=== PATIENT | female | born 1975 | race Caucasian/White ===

== ENCOUNTER 2022-09-17 08:19 | Emergency (ER) | payer BC, SELFPAY ==
[2022-09-17 08:25] VITALS: BP 138/91; PULSE 115; RESP 24; TEMP 37.2; O2SAT 99; BMI 81.6
--- NOTE | 2022-09-17 08:52 | ED.NAVMDI ---
HPI - Nausea/Vomiting/Diarrhea General Chief complaint: Nausea/Vomiting Stated complaint: can't keep any water down Time Seen by Provider: 09/17/22 08:43 History of Present Illness HPI Narrative: This 47-year-old female comes in reporting nausea, vomiting, and diarrhea over the past 3 days. She has had chills and sweats alternating during this time. She does not report any fevers. She has not had any blood in the toilet. She denies having any shortness of breath or cough symptoms. Related Data Home Medications Medication Instructions Recorded Confirmed amlodipine 5 mg tablet mg 09/17/22 bupropion HCl 100 mg tablet,12 hr mg PO 09/17/22 sustained-release hydrochlorothiazide 25 mg tablet mg 09/17/22 levonorgestrel-ethinyl estradiol tab 09/17/22 0.1 mg-20 mcg tablet (Vienva) losartan 100 mg tablet 100 mg PO DAILY 09/17/22 09/17/22 omeprazole .ROUTE 09/17/22 paroxetine HCl 30 mg tablet mg PO 09/17/22 trazodone 50 mg tablet mg 09/17/22 Previous Rx's Medication Instructions Recorded ondansetron HCl 4 mg tablet 4 mg PO Q6H #20 tabs 09/17/22 Allergies Allergy/AdvReac Type Severity Reaction Status Date / Time codeine Allergy Intermediate Verified 09/17/22 08:32 erythromycin base Allergy Intermediate Verified 09/17/22 08:32 Penicillins Allergy Intermediate Verified 09/17/22 08:32 Sulfa (Sulfonamide Allergy Intermediate Verified 09/17/22 08:32 Antibiotics) Review of Systems Status of ROS: Reports: 10 or more systems reviewed and unremarkable except as noted in History and below Narrative: Constitutional: No fevers, no weight gain or loss. Eyes: No discharge. No vision changes. HENT: No congestion, no sore throat, no ear pain. Cardiovascular: No chest pain, no palpitations. Respiratory: No shortness of breath, no wheezes, no cough. Gastrointestinal: No abdominal pain. Nausea, vomiting, and diarrhea. Genitourinary: No dysuria, no hematuria. Musculoskeletal: Normal range of motion. Skin: No rashes, no pruritis. Neurological: No dizziness, weakness, sensory change, speech change. Endo/Heme/Allergies: No bruising or bleeding. No polydipsia. Pysch: no suicidality, no anxiety, no insomnia. All other systems reviewed and are negative. PFSH PFSH Social History Smoking Status: Never smoker How often do you have a drink containing alcohol: never AUDIT-C Alcohol total score: 0 Non-prescribed substance use: marijuana (any form) Non-prescribed substance use details: last time sunday Exam Narrative: Exam Narrative: Constitutional: Well-developed, well-nourished, no acute distress. HEENT: Normocephalic, atraumatic. Neck: Normal range of motion. Nontender. Supple. Heart: Regular. No murmurs. Tachycardia, rate 115 beats per minute. Intact distal pulses. Lungs: Clear to auscultation. No chest discomfort. No wheezes, rhonchi, or rales. Abdomen: Normal bowel sounds. Nontender. No rebound tenderness. Genitalia: Deferred. Back: No midline tenderness. Normal range of motion. Extremities: Normal range of motion. No injury. Skin: Intact. No rash. Warm. No erythema or pallor. Neurologic: No altered sensation. No weakness. Alert and oriented. Psychiatric: No suicidality. No anxiety or depression. No insomnia. Nursing notes and vitals signs are reviewed. Const: Vital Signs, click to edit/add: Vital Signs - 24 hr 09/17/22 08:25 Temperature 98.9 F Pulse Rate [Pulse Oximeter] 115 H Respiratory Rate 24 Blood Pressure [Le ft Upper Arm] 138/91 H Pulse Oximetry 99 Oxygen Delivery Me thod Room Air Course Vital Signs Vital signs: Initial Vital Signs Temperature 98.9 F 09/17/22 08:25 Temperature Source Temporal Artery Scan 09/17/22 08:25 Pulse Rate 115 H 09/17/22 08:25 Respiratory Rate 24 09/17/22 08:25 Blood Pressure 138/91 H 09/17/22 08:25 Blood Pressure Mean 106 09/17/22 08:25 Blood Pressure Position Supine 09/17/22 08:25 Pulse Oximetry 99 09/17/22 08:25 Oxygen Delivery Method 09/17/22 08:25 Vital Signs Temperature 98.9 F 09/17/22 08:25 Pulse Rate 115 H 09/17/22 08:25 Respiratory Rate 24 09/17/22 08:25 Blood Pressure 138/91 H 09/17/22 08:25 Pulse Oximetry 99 09/17/22 08:25 Oxygen Delivery Method 09/17/22 08:25 Temperature 98.9 F 09/17/22 08:25 Pulse Rate 115 H 09/17/22 08:25 Respiratory Rate 24 09/17/22 08:25 Blood Pressure 138/91 H 09/17/22 08:25 Pulse Oximetry 99 09/17/22 08:25 Oxygen Delivery Method 09/17/22 08:25 MDM - Nausea/Vomiting/Diarrhea MDM Narrative Medical decision making narrative: This patient comes in with persistent vomiting and diarrhea over the past 2 or 3 days. She does have tachycardia but is maintaining sufficient blood pressure. She is very fearful that she might have COVID. Her COVID test is negative today along with negative for influenza and RSV. An IV was established where she received a L of normal saline and 4 mg of Zofran. This brought great relief of her nausea and vomiting symptoms. Lab results returned reassuring with just slight decrease in both sodium and potassium. She is okay to be discharged home to increased diet as tolerated. She did receive a prescription for Zofran. Lab Data Labs: Lab Results 09/17/22 09/17/22 09/17/22 Range/Units 08:39 09:02 09:02 WBC 10.74 (4.50-11.00) K/uL RBC 4.87 (4.00-5.20) m/uL Hgb 13.6 (12.0-16.0) gm/dL Hct 40.5 (33.0-51.0) % MCV 83 (80-100) fL MCH 28 (26-34) pg MCHC 34 (32-36) gm/dL RDW Coeff of Stew 14.2 (11.5-15.5) % Plt Count 175 (140-440) K/uL Neut % (Auto) 84.3 H (42.0-72.0) % Lymph % (Auto) 6.5 L (20-44) % [place] % (Auto) 8.6 (0.0-11.0) % Eos % (Auto) 0.0 (0.0-7.0) % Baso % (Auto) 0.3 (0.0-3.0) % Neut # (Auto) 9.10 H (1.7-7.0) K/uL Lymph # (Auto) 0.70 L (0.90-2.90) K/uL [place] # (Auto) 0.90 (0.00-0.90) K/UL Eos # (Auto) 0.00 (0.00-0.50) K/uL Baso # (Auto) 0.03 (0.00-0.30) K/uL Sodium 132 L (135-149) mmol/L Potassium 3.3 L (3.6-5.1) mmol/L Chloride 102 (96-114) mmol/L Carbon Dioxide 20 (20-32) mmol/L BUN 11 (5-24) mg/dL Creatinine 0.7 (0.5-1.5) mg/dL Estimated Creat Clear 74.97 Estimated GFR 107 ml/min Glucose 132 H (60-115) mg/dL Calcium 9.1 (8.4-10.6) mg/dL SARS-CoV-2 (PCR) Negative SARS-CoV-2 (Negative) Influenza Type A (PCR) Negative PCR FLU A (Negative) Influenza Type B (PCR) Negative PCR FLU B (Negative) RSV (PCR) Negative PCR RSV (Negative) Discharge Plan Discharge Clinical Impression: Gastroenteritis Patient Disposition: Home, Self-Care Condition: Improved Additional Instructions: Take fluids and increase diet as tolerated. Take medication for nausea as needed and directed. Follow up with MD or return if worsening. Prescriptions: New ondansetron HCl 4 mg tablet 4 mg PO Q6H Qty: 20 0RF No Action trazodone 50 mg tablet levonorgestrel-ethinyl estrad [Vienva] 0.1-20 mg-mcg tablet Label Comments: TAKE 1 TABLET BY MOUTH EVERY DAY amlodipine 5 mg tablet bupropion HCl 100 mg tablet sustained-release 12 hr PO paroxetine HCl 30 mg tablet PO hydrochlorothiazide 25 mg tablet omeprazole [Prilosec] .ROUTE losartan 100 mg tablet 100 mg PO DAILY Follow Up/Referrals: Kamla Vazquez PA-C [Referring] - Stand Alone Forms: [facility] Info Instructions
[2022-09-17] MEDS: ONDANSETRON 2 MG/ML inj 4 MG IVP (09:06)
[2022-09-17] MEDS: 0.9 % SODIUM CHLORIDE 1000 ml 1,000 ML IV (09:06)
[2022-09-17 09:16] LABS: Basophils Absolute Auto 0.03 K/uL (0.00-0.30); Basophils Percent Auto 0.3 % (0.0-3.0); Hematocrit 40.5 % (33.0-51.0); Hemoglobin* 13.6 gm/dL (12.0-16.0); Immature Granulocytes Abs Auto 0.03 K/uL (0.00-0.30); Immature Granulocytes Pct Auto 0.3 %; Lymphocytes Percent Auto 6.5 % (20-44); Mean Corpuscular HGB Conc 34 gm/dL (32-36); Mean Corpuscular Hemoglobin 28 pg (26-34); Mean Corpuscular Volume 83 fL (80-100); Monocytes Percent Auto 8.6 % (0.0-11.0); Neutrophils Percent Auto 84.3 % (42.0-72.0); Platelet Count* 175 K/uL (140-440); RDW Coefficient of Variation % 14.2 % (11.5-15.5); Red Blood Count 4.87 m/uL (4.00-5.20); White Blood Count* 10.74 K/uL (4.50-11.00)
[2022-09-17 09:21] LABS: Slide Review Reflex No
[2022-09-17 09:29] LABS: PCR FLU A Negative PCR FLU A (Negative); PCR FLU B Negative PCR FLU B (Negative); PCR RSV Negative PCR RSV (Negative)
[2022-09-17 09:30] LABS: SARS PCR* Negative SARS-CoV-2 (Negative)
[2022-09-17 09:32] LABS: Chloride* 102 mmol/L (96-114); Sodium* 132 mmol/L (135-149)
[2022-09-17 09:33] LABS: Potassium* 3.3 mmol/L (3.6-5.1)
[2022-09-17 09:35] LABS: Carbon Dioxide* 20 mmol/L (20-32); Creatinine* 0.7 mg/dL (0.5-1.5); Est. Creatinine Clearance* 74.97; Estimated Glomerular Filt Rate 107 ml/min
[2022-09-17 09:36] LABS: Blood Urea Nitrogen* 11 mg/dL (5-24); Calcium* 9.1 mg/dL (8.4-10.6); Glucose* 132 mg/dL (60-115)
== END 2022-09-17 10:08 | disposition home or self-care (01) ==
PROVIDERS: Emergency Provider Emergency Medicine Emergency Medical Services; PCP Student in an Organized Health Care Education/Training Program
DX: J18.1 Lobar pneumonia, unspecified organism (principal); K52.9 Noninfective gastroenteritis and colitis, unspecified
CPT/HCPCS: 36415; 80048; 85025; 87502; 87634; 87635; 96361; 96374; 99284; J2405; J7030

== ENCOUNTER 2022-09-21 08:24 | Emergency (ER) | payer BC, SELFPAY ==
[2022-09-21 08:37] VITALS: BP 103/76; PULSE 83; RESP 18; TEMP 35.8; O2SAT 98; BMI 34.8
[2022-09-21] MEDS: 0.9 % SODIUM CHLORIDE 1000 ml 1,000 ML IV (09:00)
[2022-09-21 09:06] VITALS: O2SAT 98
[2022-09-21 09:11] LABS: Lactate* 1.3 mmol/L (0.5-1.9)
[2022-09-21 09:14] LABS: Basophils Absolute Auto 0.02 K/uL (0.00-0.30); Basophils Percent Auto 0.3 % (0.0-3.0); Eosinophils Absolute Auto 0.03 K/uL (0.00-0.50); Eosinophils Percent Auto 0.4 % (0.0-7.0); Hematocrit 38.9 % (33.0-51.0); Hemoglobin* 13.3 gm/dL (12.0-16.0); Immature Granulocytes Abs Auto 0.08 K/uL (0.00-0.30); Mean Corpuscular HGB Conc 34 gm/dL (32-36); Mean Corpuscular Hemoglobin 28 pg (26-34); Mean Corpuscular Volume 81 fL (80-100); Monocytes Percent Auto 11.7 % (0.0-11.0); Neutrophils Percent Auto 77.6 % (42.0-72.0); RDW Coefficient of Variation % 13.9 % (11.5-15.5); Red Blood Count 4.78 m/uL (4.00-5.20); White Blood Count* 7.76 K/uL (4.50-11.00)
[2022-09-21 09:29] LABS: Chloride* 96 mmol/L (96-114)
[2022-09-21 09:30] LABS: Albumin* 4.1 g/dL (3.3-5.0); Sodium* 132 mmol/L (135-149)
[2022-09-21 09:31] LABS: Potassium* 3.2 mmol/L (3.6-5.1)
[2022-09-21 09:33] LABS: Alanine Aminotransferase* 78 U/L (4-35); Alkaline Phosphatase* 103 U/L (40-150); Aspartate Amino Transferase* 80 U/L (12-35); Bilirubin Total* 0.6 mg/dL (0.1-1.5); Blood Urea Nitrogen* 23 mg/dL (5-24); Carbon Dioxide* 23 mmol/L (20-32); Creatinine* 1.1 mg/dL (0.5-1.5); Est. Creatinine Clearance* 47.71; Estimated Glomerular Filt Rate 62 ml/min; Platelet Count* 400 K/uL (140-440); Slide Review Reflex No; Total Protein* 7.6 g/dL (6.0-8.3)
[2022-09-21 09:34] LABS: Glucose* 125 mg/dL (60-115)
--- NOTE | 2022-09-21 09:37 | ED.GENADULT ---
HPI - General Adult General Time Seen by Provider: 09:37 Date Seen: 09/21/22 Chief complaint: Weakness Stated complaint: dizzy, dehydrated Time Seen by Provider: 09/21/22 09:37 Source: patient, RN notes reviewed, old records reviewed and other (Dr. Garza called with report) Mode of arrival: ambulatory Limitations: no limitations History of Present Illness HPI narrative: Patient is a 47-year-old female referred from clinic for concern of illness requiring IV fluids in more intervention than the clinic could do. Patient was following up from clinic for an ER visit on Sunday the . She reportedly has had gastroenteritis has been sweating, is feeling weak. Patient admits that she feels she is starting to improve. Last night was the 1st night she did not have diarrhea. She was able to eat a sandwich last night which is the 1st time she has had solid foods. In the beginning she was just having such significant nausea vomiting and diarrhea she could not keep anything in. When she was in on September 17, received a L of IV fluids and Zofran with improvement. She did get a prescription for Zofran at home and has been using it, has found it helpful to increase her fluids. She denies any fevers, denies any abdominal pain. She has had no travel, no ill contacts that she is aware of. She does state that she smokes marijuana but has not done so this illness. There has been no blood in the stool. Related Data Home Medications Medication Instructions Recorded Confirmed amlodipine 5 mg tablet mg 09/17/22 09/21/22 bupropion HCl 100 mg tablet,12 hr mg PO 09/17/22 09/21/22 sustained-release hydrochlorothiazide 25 mg tablet mg 09/17/22 09/21/22 levonorgestrel-ethinyl estradiol tab 09/17/22 09/21/22 0.1 mg-20 mcg tablet (Vienva) losartan 100 mg tablet 100 mg PO DAILY 09/17/22 09/21/22 omeprazole .Route 09/17/22 09/21/22 paroxetine HCl 30 mg tablet mg PO 09/17/22 09/21/22 trazodone 50 mg tablet mg 09/17/22 09/21/22 Previous Rx's Medication Instructions Recorded ondansetron HCl 4 mg tablet 4 mg PO Q6H #20 tabs 09/17/22 doxycycline monohydrate 100 mg 100 mg PO BID #19 tabs 09/21/22 tablet Allergies Allergy/AdvReac Type Severity Reaction Status Date / Time codeine Allergy Intermediate Verified 09/21/22 08:37 erythromycin base Allergy Intermediate Verified 09/21/22 08:37 Penicillins Allergy Intermediate Verified 09/21/22 08:37 Sulfa (Sulfonamide Allergy Intermediate Verified 09/21/22 08:37 Antibiotics) Review of Systems Status of ROS: Reports: 10 or more systems reviewed and unremarkable except as noted in History and below PFSH PFSH Social History Smoking Status: Never smoker Do you use any of these nicotine containing products: None Second hand tobacco smoke exposure: No How often do you have a drink containing alcohol: never How often do you have six or more drinks on one occasion: Never AUDIT-C Alcohol total score: 0 Non-prescribed substance use: marijuana (any form) Non-prescribed substance use details: last time sunday service: No Exam Const: Vital Signs, click to edit/add: Vital Signs - 24 hr 09/21/22 08:37 09/21/22 09:06 09/21/22 11:05 Temperature 96.4 F L Pulse Rate [Femora l] 83 76 Pulse Rate [Pulse Oximeter] Respiratory Rate 18 18 Blood Pressure [Le ft Upper Arm] 115/70 Blood Pressure [Ri ght Upper Arm] 103/76 Pulse Oximetry 98 98 97 Oxygen Delivery Me thod Room Air Room Air 09/21/22 13:16 09/21/22 13:17 Temperature Pulse Rate [Femora l] Pulse Rate [Pulse Oximeter] 76 Respiratory Rate 20 Blood Pressure [Le ft Upper Arm] 123/87 Blood Pressure [Ri ght Upper Arm] Pulse Oximetry 97 97 Oxygen Delivery Me thod Room Air Documenting provider has reviewed patient's vital signs: yes Common normals: no apparent distress, oriented x3, no limitations and alert General appearance: cooperative, comfortable, well kempt and well developed Other: 47-year-old female that is pleasant, seems mildly ill but no apparent distress. HENMT: Common normals: normocephalic, head/scalp atraumatic, hearing grossly normal bilaterally and external ears normal Head and scalp: normocephalic and atraumatic External ear: external ears normal Other: Tongue and mucosa with no lesions noted but definitely dry. Eye: Common normals: PERRL, EOMs intact bilaterally, conjunctivae normal and no scleral icterus Conjunctiva: conjunctiva(e) normal Pupil: PERRL Neck & C-Spine: Common normals: full ROM, no lymphadenopathy, supple, no meningeal signs, no JVD and thyroid normal Thyroid: thyroid normal Resp: Common normals: normal respiratory effort, no retractions, no use of accessory muscles and clear to auscultation bilaterally Auscultation: clear to auscultation bilaterally Cardio: Common normals: no JVD, regular rate, regular rhythm, S1 normal heart sound, S2 normal heart sound, no gallops, no clicks and no murmurs Rate: regular rate Rhythm: regular rhythm Heart sounds: S1 normal and S2 normal GI: Common normals: Normal to inspection, nondistended, normoactive bowel sounds present, soft to palpation, non-tender, no hepatosplenomegaly and no masses Palpation: soft and no hepatosplenomegaly Neuro: Common normals: oriented x3 Sensorium/orientation: alert Meningeal signs: no meningeal signs Psych: Appearance: well kempt Course Course Hospital Course: IV was placed on arrival, L of normal saline initiated and 4 mg IV Zofran. Had ordered some basic labs on her after I had taken report from the clinic. Was able to review with her that her potassium is mildly low and is at 3.2, is same where she was on Sunday. I do think we should attempt to replace this. We discussed IV versus oral, she would like to try oral. I have ordered 25 mEq oral effervescent potassium. We will see about another L of fluids. I was initially considering imaging but after evaluating her, updating her history and finding her abdomen to be completely benign, think that this is likely just a prolonged gastroenteritis. She seems to be improving and hopefully is at the tail end of this. Thus, a.m. going to defer doing any testing for C difficile, further stool studies or CT imaging of her abdomen. Do not find them to be clinically indicated at this time given review of her labs and her current status. Her blood pressure is lower than what it was on the , supporting dehydration. She overall is stable but do agree that she needed IV fluids. Reevaluation(s) Reevaluation #1: Patient feels that she should have more fluids. Was considering this anyway, have ordered a 2 L of lactated Ringer's. Time: 10:24 Reevaluation #2: Reviewed with patient that her CRP is quite elevated at 23.2. Given this finding, do believe that we should proceed with imaging of her abdomen and I have ordered a CT abdomen pelvis with IV contrast. She is in agreement to proceed. May need to consider doing stool studies like C difficile, stool cultures, etc. pending outcome of the CT scan. Time: 10:32 Reevaluation #3: Have received her CT over-read, did visualize the lung windows after the radiology report showed a dense left lower lobe pneumonia. Indeed it is readily visible. Have went over patient's CT findings including incidental findings. Will initiate IV doxycycline. Time: 12:46 Vital Signs Vital signs: Initial Vital Signs Temperature 96.4 F L 09/21/22 08:37 Temperature Source Temporal Artery Scan 09/21/22 08:37 Pulse Rate 83 09/21/22 08:37 Pulse Rhythm 09/21/22 08:37 Respiratory Rate 18 09/21/22 08:37 Blood Pressure 103/76 09/21/22 08:37 Blood Pressure Mean 85 09/21/22 08:37 Blood Pressure Position Supine 09/21/22 08:37 Pulse Oximetry 98 09/21/22 08:37 Oxygen Delivery Method 09/21/22 08:37 Vital Signs Temperature 96.4 F L 09/21/22 08:37 Pulse Rate 83 09/21/22 08:37 Respiratory Rate 18 09/21/22 08:37 Blood Pressure 103/76 09/21/22 08:37 Pulse Oximetry 98 09/21/22 08:37 Oxygen Delivery Method 09/21/22 08:37 Temperature 96.4 F L 09/21/22 08:37 Pulse Rate 76 09/21/22 13:16 Respiratory Rate 20 09/21/22 13:16 Blood Pressure 123/87 09/21/22 13:16 Pulse Oximetry 97 09/21/22 13:17 Oxygen Delivery Method 09/21/22 13:16 Medical Decision Making Lab Data Lab results reviewed: Yes I reviewed the patient's lab results Labs: Lab Results 09/21/22 09/21/22 09/21/22 Range/Units 09:00 09:00 09:00 WBC 7.76 (4.50-11.00) K/uL RBC 4.78 (4.00-5.20) m/uL Hgb 13.3 (12.0-16.0) gm/dL Hct 38.9 (33.0-51.0) % MCV 81 (80-100) fL MCH 28 (26-34) pg MCHC 34 (32-36) gm/dL RDW Coeff of Stew 13.9 (11.5-15.5) % Plt Count 400 (140-440) K/uL Neut % (Auto) 77.6 H (42.0-72.0) % Lymph % (Auto) 9.0 L (20-44) % [place] % (Auto) 11.7 H (0.0-11.0) % Eos % (Auto) 0.4 (0.0-7.0) % Baso % (Auto) 0.3 (0.0-3.0) % Neut # (Auto) 6.00 (1.7-7.0) K/uL Lymph # (Auto) 0.70 L (0.90-2.90) K/uL [place] # (Auto) 0.90 (0.00-0.90) K/UL Eos # (Auto) 0.03 (0.00-0.50) K/uL Baso # (Auto) 0.02 (0.00-0.30) K/uL Sodium 132 L (135-149) mmol/L Potassium 3.2 L (3.6-5.1) mmol/L Chloride 96 (96-114) mmol/L Carbon Dioxide 23 (20-32) mmol/L BUN 23 (5-24) mg/dL Creatinine 1.1 (0.5-1.5) mg/dL Estimated Creat Clear 47.71 Estimated GFR 62 ml/min Glucose 125 H (60-115) mg/dL Lactate 1.3 (0.5-1.9) mmol/L Calcium 9.0 (8.4-10.6) mg/dL Total Bilirubin 0.6 (0.1-1.5) mg/dL AST 80 H (12-35) U/L ALT 78 H (4-35) U/L Alkaline Phosphatase 103 (40-150) U/L C-Reactive Protein 23.2 H (0.5-1.0) mg/dL Total Protein 7.6 (6.0-8.3) g/dL Albumin 4.1 (3.3-5.0) g/dL Imaging Data CT scan - abdomen: Attestation: I have reviewed the pertinent imaging results. Radiologist's impression: Patient: DAVID KING Facility:?[facility] Patient ID:?[id number] Site Patient ID:?[id number]. Site :?[id number] Study:?CT Abdomen/Pelvis W ISOVUE 370-09/21/2022 11:11:12 AM Ordering Physician:Kemi Koo Final Report: Indication: Nausea and vomiting prolonged diarrhea, elevated CRP Technique: Volumetric multidetector CT images of the abdomen and pelvis were obtained after the administration of intravenous contrast. 57 cc Isovue 370 low osmolar intravenous contrast Comparison: None available. Findings: There is dense airspace opacification of the left lower lobe consistent with infiltrate. There is a loculated pericardial cyst. The liver is enlarged with mild hepatomegaly. There is no focal abnormality. The portal vein is patent. The gallbladder is unremarkable without evidence of radiopaque calculus. There is no significant common biliary ductal dilatation or abrupt cut off. The spleen is mildly enlarged without focal abnormality. There is mild thickening of the gastric antrum with minimal gastric mucosal hyperemia. The pancreas is normal in enhancement without significant atrophy. There is demonstration of a low-density mass within the right adrenal gland measuring 3.4 centimeters in greatest dimension which may represent an adenoma versus myelolipoma. The kidneys demonstrate preserved corticomedullary differentiation without evidence of obstructive uropathy. Mild to moderate stool seen throughout the colon with distal colonic diverticulosis without evidence of diverticulitis. Minimal nonspecific fluid seen throughout the small bowel. No evidence of obstruction. The appendix is unremarkable. There is no significant mesenteric, retroperitoneal, or pelvic sidewall lymph nodes. The aorta is nonaneurysmal. There is no significant atherosclerotic disease appreciated. The solid pelvic viscera are grossly unremarkable. There is no free fluid or free air. The anterior abdominal wall is intact without significant hernias. The lumbar vertebral body heights are grossly maintained in satisfactory alignment without evidence of displaced fracture, lytic or blastic lesion. Impression: Scattered nonspecific fluid within central loops of small bowel which may represent mild enteritis change. Dense airspace opacification of the peripheral left lower lobe consistent with pneumonia. Hepatomegaly and hepatic steatosis. Splenomegaly. 3.4 centimeter fat containing mass in the right adrenal gland which may represent an adenoma versus a myelolipoma. Please note that all CT scans at this facility use dose modulation, iterative reconstruction, and/or weight-based dosing when appropriate to reduce radiation dose to as low as reasonably achievable. Dictated by Kamaljit Zaragoza MD @ 09/21/2022 12:14:25 PM (Electronic Signature) Discharge Plan Discharge Clinical Impression: Gastroenteritis, Left lower lobe pneumonia Patient Disposition: Home, Self-Care Condition: Improved Instructions: Gastroenteritis (ED), Nutrition Tips for Relief of Diarrhea (ED), Pneumonia (ED) Additional Instructions: Start oral antibiotics tonight and take as prescribed. May need to use ongoing Zofran to help control any residual nausea or vomiting. Diarrhea may conceivably worsen being on antibiotics, can try adding in a probiotic. Need clinic recheck within the next 3-5 days. Do recommend a chest x-ray at some point in the next 48 weeks to ensure resolution of the pneumonia. In the meantime, if you are worsening, feel you are becoming dehydrated again, cannot take oral antibiotics for any reason, have other concerns, please return to the ER for further evaluation. Activity Level: Activity as Tolerated Prescriptions: New doxycycline monohydrate 100 mg tablet 100 mg PO BID Qty: 19 0RF No Action trazodone 50 mg tablet levonorgestrel-ethinyl estrad [Vienva] 0.1-20 mg-mcg tablet Label Comments: TAKE 1 TABLET BY MOUTH EVERY DAY amlodipine 5 mg tablet bupropion HCl 100 mg tablet sustained-release 12 hr PO paroxetine HCl 30 mg tablet PO hydrochlorothiazide 25 mg tablet omeprazole [Prilosec] .Route losartan 100 mg tablet 100 mg PO DAILY ondansetron HCl 4 mg tablet 4 mg PO Q6H Qty: 20 0RF Follow Up/Referrals: ELLEN ZAVALA DO [Referring] - Stand Alone Forms: [employer] Info Instructions
[2022-09-21 10:01] LABS: C Reactive Protein* 23.2 mg/dL (0.5-1.0)
[2022-09-21] MEDS: POTASSIUM BICARB 25 MEQ EFFERVESCENT TAB PO (10:12)
[2022-09-21] MEDS: LACTATED RINGERS 1000 ML 1,000 ML IV (10:15)
--- NOTE | 2022-09-21 10:29 | CRLHL7_ITS ---
For Patients: As a result of the Century Cures Act, medical imaging exams and procedure reports are released immediately into your electronic medical record. You may view this report before your referring provider. If you have questions, please contact your health care provider. Indication: Nausea and vomiting prolonged diarrhea, elevated CRP Technique: Volumetric multidetector CT images of the abdomen and pelvis were obtained after the administration of intravenous contrast. 57 cc Isovue 370 low osmolar intravenous contrast Comparison: None available. Findings: There is dense airspace opacification of the left lower lobe consistent with infiltrate. There is a loculated pericardial cyst. The liver is enlarged with mild hepatomegaly. There is no focal abnormality. The portal vein is patent. The gallbladder is unremarkable without evidence of radiopaque calculus. There is no significant common biliary ductal dilatation or abrupt cut off. The spleen is mildly enlarged without focal abnormality. There is mild thickening of the gastric antrum with minimal gastric mucosal hyperemia. The pancreas is normal in enhancement without significant atrophy. There is demonstration of a low-density mass within the right adrenal gland measuring 3.4 centimeters in greatest dimension which may represent an adenoma versus myelolipoma. The kidneys demonstrate preserved corticomedullary differentiation without evidence of obstructive uropathy. Mild to moderate stool seen throughout the colon with distal colonic diverticulosis without evidence of diverticulitis. Minimal nonspecific fluid seen throughout the small bowel. No evidence of obstruction. The appendix is unremarkable. There is no significant mesenteric, retroperitoneal, or pelvic sidewall lymph nodes. The aorta is nonaneurysmal. There is no significant atherosclerotic disease appreciated. The solid pelvic viscera are grossly unremarkable. There is no free fluid or free air. The anterior abdominal wall is intact without significant hernias. The lumbar vertebral body heights are grossly maintained in satisfactory alignment without evidence of displaced fracture, lytic or blastic lesion. Impression: Scattered nonspecific fluid within central loops of small bowel which may represent mild enteritis change. Dense airspace opacification of the peripheral left lower lobe consistent with pneumonia. Hepatomegaly and hepatic steatosis. Splenomegaly. 3.4 centimeter fat containing mass in the right adrenal gland which may represent an adenoma versus a myelolipoma. Please note that all CT scans at this facility use dose modulation, iterative reconstruction, and/or weight-based dosing when appropriate to reduce radiation dose to as low as reasonably achievable. Dictated by Kamaljit Zaragoza MD @ 09/21/2022 12:14:25 PM (Electronically Signed)
[2022-09-21 11:05] VITALS: BP 115/70; PULSE 76; RESP 18; O2SAT 97
--- NOTE | 2022-09-21 12:20 | ED.NURSE ---
has been up to void~3 times. is feeling better. at bedside. is very supportive and loving.
[2022-09-21] MEDS: DOXYCYCLINE HYCLATE 100 MG in 0.9 % SODIUM CHLORIDE Mini-bag 100 ML IVPB (13:09)
[2022-09-21 13:16] VITALS: BP 123/87; PULSE 76; RESP 20; O2SAT 97
== END 2022-09-21 14:41 | disposition home or self-care (01) ==
PROVIDERS: Emergency Provider Family Medicine; PCP Family Medicine
DX: K52.9 Noninfective gastroenteritis and colitis, unspecified (principal); J18.9 Pneumonia, unspecified organism
CPT/HCPCS: 36415; 74177; 80053; 83605; 85025; 86140; 94761; 99284; A9270; J7030; J7120; Q9967

== ENCOUNTER 2022-09-25 09:35 | Outpatient (CLI) | payer BC, SELFPAY | END 2022-09-25 09:36 | disposition home or self-care (01) | PROVIDERS: PCP Family Medicine; Visit Provider Family Medicine | DX: E87.1 Hypo-osmolality and hyponatremia (principal); E87.6 Hypokalemia | CPT/HCPCS: 80048 ==

== ENCOUNTER 2023-06-22 07:53 | Outpatient (CLI) | payer BC, SELFPAY | END 2023-06-22 07:54 | disposition home or self-care (01) | LOC: NFLDREF 06-25 05:46 | PROVIDERS: PCP Family Medicine; Referring Provider Family Medicine; Visit Provider Family Medicine | DX: Z13.220 Encounter for screening for lipoid disorders (principal); I10 Essential (primary) hypertension | CPT/HCPCS: 80053; 80061 ==

== ENCOUNTER 2024-07-14 07:59 | Outpatient (CLI) | payer BC, SELFPAY | END 2024-07-14 08:00 | disposition home or self-care (01) | LOC: NFLDREF 16:09 | PROVIDERS: PCP Family Medicine; Referring Provider Family Medicine; Visit Provider Family Medicine | DX: Z13.220 Encounter for screening for lipoid disorders (principal) | CPT/HCPCS: 80061 ==

== ENCOUNTER 2024-07-21 14:25 | Outpatient (CLI) | payer BC, SELFPAY ==
[2024-07-25 06:20] LABS: HPV Source Cervical; HPV, High Risk by TMA Not Detected
== END 2024-07-21 14:26 | disposition home or self-care (01) ==
PROVIDERS: PCP Family Medicine; Visit Provider Family Medicine
DX: Z11.51 Encounter for screening for human papillomavirus (HPV) (principal); Z12.4 Encounter for screening for malignant neoplasm of cervix; I10 Essential (primary) hypertension
CPT/HCPCS: 80048; 87624; 87625; 88141; 88142